=== PATIENT | female | born 1945 | race Caucasian/White ===

== ENCOUNTER 2017-06-07 15:51 | Inpatient (IN) | payer MEDICARE, MEDICAID ==
[~2017-06-07] VITALS: Ht 157.5 cm; Wt 44.5 kg
--- NOTE | 2017-06-07 16:45 | NUR ---
ADMITTED TO ARU UNIT, PER [facility] ACCOMPANIED BY MEDRESPONSE. ALERT AND ORIENTED X3. NO COMPALINST OF DISCOMFRT. ROUTINE ADMISSION CARE DONE. ORIENTED TO EQUIPMENT AND UNIT. SEEN AND EXAMINED BY DR. NELSON. PATIENT ANXIOUS.
[2017-06-07 17:00] VITALS: BP 105/66
[2017-06-07] MEDS ORDERED: BUPR-88 PO (18:19)
[2017-06-07] MEDS ORDERED: BUSP5TAB3 PO (18:19)
[2017-06-07] MEDS ORDERED: ALBU2.5V38 IH (18:19)
[2017-06-07] MEDS ORDERED: NORT25CA PO (18:19)
[2017-06-07] MEDS ORDERED: BUDE0.252 IH (18:19)
[2017-06-07] MEDS ORDERED: ZOLP5TAB8 PO (18:19)
[2017-06-07] MEDS ORDERED: BUDE10.2 INH (18:19)
[2017-06-07] MEDS ORDERED: LEVO750T46 PO (18:19)
[2017-06-07] MEDS ORDERED: DOXE10CA2 PO (18:19)
[2017-06-07] MEDS ORDERED: GABA600T2 PO (18:19)
[2017-06-07] MEDS ORDERED: HYDR-548 PO (18:19)
[2017-06-07] MEDS ORDERED: ERGO500014 PO (18:19)
[2017-06-07] MEDS ORDERED: CARB-93 PO (18:19)
[2017-06-07] MEDS ORDERED: FURO20TA4 PO (18:19)
[2017-06-07] MEDS ORDERED: SUCR1TAB PO (18:19)
[2017-06-07] MEDS ORDERED: TRIA80OI TP (18:19)
[2017-06-07] MEDS ORDERED: OMEP20TA5 PO (18:19)
[2017-06-07] MEDS ORDERED: ATOR20TA PO (18:19)
[2017-06-07] MEDS ORDERED: RIVA1.5C7 PO (18:19)
[2017-06-07] MEDS ORDERED: ASPI81TA31 PO (18:19)
[2017-06-07] MEDS ORDERED: POTA10TA15 PO (18:19)
--- NOTE | 2017-06-07 19:45 | NUR ---
RECEIVED PATIENT AWAKE IN BED. A/O X3. PATIENT IS VERY UPSET AND VERY ANXIOUS. PATIENT IS UPSET THAT SHE DOESN'T HAVE ANY ADHESIVE FOR HER DENTURES. VSS. HR SLIGHTLY ELEVATED DUE TO PATIENTS ANXIETY. PATIENT DENIES PAIN OR DISCOMFORT. NO RESP. DISTRESS NOTED. BED ALARM ON. CALL LIGHT IN REACH. ALL NEEDS ATTENDED. WILL CONTINUE TO MONITOR AND ASSESS.
--- NOTE | 2017-06-07 20:00 | NUR ---
PATIENT PROVIDED WITH DENTURE ADHESIVE CREAM. PATIENT IS VERY THANKFUL AND RELIEVED. PROVIDED SAFE AND THERAPEUTIC ENVIRONMENT. WILL CONTINUE TO REASSESS AND MONITOR VITALS. CALL LIGHT IN REACH. ALL NEEDS ATTENDED, WILL CONTINUE TO MONITOR AND ASSESS.
[2017-06-07 20:28] VITALS: BP 102/70
--- NOTE | 2017-06-07 20:30 | NUR ---
RECHECKED PATIENT HEART RATE-WNL. PATIENT STATED, "I FEEL BETTER NOW, THANK YOU SO MUCH." WILL CONTINUE TO MONITOR AND ASSESS.
--- NOTE | 2017-06-08 06:43 | NUR ---
PATIENT AWAKE IN BED. SLEPT WELL THROUGHOUT THE NIGHT. SACRAL AND BUTTOCKS VERY RED AND EXCORIATED. Z-GUARD APPLIED. REPOSITIONED TO SIDE FOR COMFORT AND PRESSURE RELIEF. PICTURE TAKEN AND PLACED IN CHART. CALL LIGHT IN REACH. BED ALARM ON. ALL NEEDS ATTENDED. WILL CONTINUE TO MONITOR.
[2017-06-08 07:21] LABS: BASOPHILS % (AUTO) 0.4 % (0.0-2.0); EOSINOPHILS # (AUTO) 0.1 K/uL (0.0-0.7); EOSINOPHILS % (AUTO) 0.5 % (0.0-7.0); HEMATOCRIT 33.9 % (37-47); HEMOGLOBIN 10.6 G/DL (12.0-16.0); LYMPHOCYTES # (AUTO) 1.9 K/UL (0.8-4.8); LYMPHOCYTES % (AUTO) 17.1 % (20.5-51.5); MEAN CORPUSCULAR HEMOGLOBIN 27.4 UUG (27.0-31.0); MEAN CORPUSCULAR HGB CONC 31 g/dL (32.0-37.0); MEAN CORPUSCULAR VOLUME 87.6 FL (81.0-99.0); MONOCYTES # (AUTO) 0.7 K/UL (0.1-1.30); MONOCYTES % (AUTO) 6.6 % (0.0-11.0); NEUTROPHILS # (AUTO) 8.5 K/UL (1.8-8.9); NEUTROPHILS % (AUTO) 75.4 % (38.5-71.5); PLATELET COUNT (AUTO) 262 K/UL (150-450); RED BLOOD CELL COUNT(AUTO) 3.87 MIL/UL (4.2-5.4); WHITE BLOOD COUNT (AUTO) 11.2 K/UL (4.0-11.2)
--- NOTE | 2017-06-08 07:30 | NUR ---
RECEIVED PATIENT ASLEEP. NON-LABORED BREATHING. CALL LIGHT WITHIN REACH
[2017-06-08 07:35] LABS: CARBON DIOXIDE 32 mmol/L (21-32); CHLORIDE 101 mmol/L (98-107); CHOLESTEROL 133 mg/dL (<200); CREATININE 0.5 mg/dL (0.6-1.3); GLUCOSE 101 mg/dL (74-106); HDL CHOLESTEROL 46 mg/dL (40-60); MAGNESIUM 1.5 mg/dL (1.8-2.4); PHOSPHOROUS 3.2 mg/dL (2.5-4.9); POTASSIUM 3.2 mmol/L (3.5-5.1); TRIGLYCERIDES 118 MG/DL (30-150); UREA NITROGEN, BLOOD 8 mg/dL (7-18)
[2017-06-08 07:58] LABS: BAND % (MANUAL) 3 % (0-10); LYMPHOCYTES % (MANUAL) 19 % (20-40); MONOCYTES % (MANUAL) 7 % (2-10); NEUTROPHILS % (MANUAL) 71 % (42-75)
[2017-06-08 08:00] VITALS: BP 99/74
--- NOTE | 2017-06-08 10:30 | NUR ---
REFUSED TO PARTICIPATE WITH THERAPY AT THE MOMENT. ALERT, AWAKE AND ORIENTED X3. WITHDRAWN. ENCOURAGED SMALL FREQUENT MEALS. PATIENT WAS ABLE TO EAT ONLY 10 % DURING BREAKFAST
--- NOTE | 2017-06-08 12:00 | NUR ---
UP WITH OCCUPATIONAL THERAPY. REQUESTED FOR PAIN MEDICATIONS RATED PAIN 7/10 OVER BACK. PRN PAIN MEDICATION GIVEN
--- NOTE | 2017-06-08 17:20 | NUR ---
Patient still withdrawn and refused to eat dinner. Informed Dr. Walter, Psyche consult ordered and Rameron 15 mg Po HS.
[2017-06-08 20:37] VITALS: BP 105/61
--- NOTE | 2017-06-08 22:00 | NUR ---
Was upset that we disturbed her, to turn her. Then quickly went back to sleep
--- NOTE | 2017-06-09 05:45 | NUR ---
a/a but confused.TURNED EVERY 2 HRS
--- NOTE | 2017-06-09 05:45 | NUR ---
Slept most of the night
[2017-06-09 07:43] VITALS: BP 130/76
--- NOTE | 2017-06-09 14:20 | NUR ---
DAILY NOTES PT IS REFUSING MOST OF MEDS AND MEALS. MEDS SCANNED THIS AM BUT SHE IS REFUSING TO TAKE THEM. ENCOURAGE HER TO INCREASE HER PO INTAKE. SHE IS ALSO REFUSING TO EAT BKFST AND LUNCH WELL NOTIFIED. ORDERED D51/2 @ 80ML/HR X 3 LITERS. AND CONTINUE TO ENCOURAGE PO INTAKE
--- NOTE | 2017-06-09 14:24 | NUR ---
WOUND CARE CONSULT: PT PRESENTS WITH INCONTINENCE. BHARATH SCORE IS CURRENTLY 15. BLANCHABLE REDNESS NOTED TO SACRAL AREA WITH SCAR. RECOMMENDATIONS MADE FOR SKIN PROTECTION AND DISCUSSED WITH NURSING STAFF. ALL SKIN PROTECTION MEASURES IN PLACE. WILL SEE PRN. JONES IN AGREEMENT WITH PLAN OF CARE. Addendum: 06/09/17 at 1426 by ANEESH AGUSTIN RN Amended: Links added.
[2017-06-09 20:43] VITALS: BP 117/65
--- NOTE | 2017-06-09 21:30 | NUR ---
PT'S A/A/O X2 ON BED REST COMFORTABLY,PT'S ON IVF ORDER DUE TO PT HAD POOR INTAKE(PER AM SHIFT'S REPORT);ASSISTED PT TO REPOSITION AND GAVE SOME APPLE SAUCE AT THIS TIME;PT'S COOPERATIVE W/ASSISTANCE AND ABLE TO GET 3/4 CUP OF APPLE SAUCE;TOLERATED WELL NOTED.FALL PRECAUTION REINFORCED.BED ALARM'S ON.MAINTAINED IVF ORDER.
--- NOTE | 2017-06-10 06:30 | NUR ---
ASSISTED PT FOR AM,SKIN CARE ON BED;REPOSITION AND KEPT COMFORT.NO DSITRESS NOTED IN THE SHIFT,PT TOLERATED WELL WITH TX AND ASSISTANCE.STILL ON IVF ORDER.
--- NOTE | 2017-06-10 07:40 | NUR ---
PT AWAKE IN BED, NO DISTRESS NOTED. WHEN ASKED IF THERE WAS ANYTHING I DO FOR FOR THE PT, PT STATED "NO I AM LEAVING" ALL SAFETY AND COMFORT MEASURES ATTENDED TO, CALL LIGHT IN REACH WILL CONTINUE TO MONITOR
[2017-06-10 08:43] VITALS: BP 128/72
--- NOTE | 2017-06-10 08:53 | NUR ---
PT TOOK ALL MORNING MEDICATIONS BUT DOES NOT WANT TO EAT BREAKFAST AT THIS TIME
--- NOTE | 2017-06-10 18:46 | NUR ---
PT INTAKE UP TO 25% FOR DINNER. 3RD BAG OF D5 1/2 NS INFUSING AT THIS TIME. NO CHANGES THROUGHOUT SHIFT
--- NOTE | 2017-06-10 19:35 | NUR ---
PT RECEIVED IN BED, AWAKE. A/OX4. ABLE TO MAKE NEEDS KNOWN. V/S STABLE. IN NO ACUTE DISTRESS. NO C/O PAIN AT THIS TIME. IVF INFUSING. SAFETY MEASURES IMPLEMENTED. BED ALARM SET. CALL LIGHT WITHIN REACH.
[2017-06-10 20:05] VITALS: BP 98/48
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
[2017-06-11 07:05] VITALS: BP 139/79
--- NOTE | 2017-06-11 20:00 | NUR ---
RECEIVED PT. VERBALLY RESPONSIVE & FOLLOWS TO COMMAND W/ PERIODS OF CONFUSION. HEP LOCK INTACT & PATENT ON RFA. HS CARE DONE & REPOSITIONED ON HER W/ HOB ELEVATED. NOT IN ANY DISTRESS.
[2017-06-11 22:03] VITALS: BP 98/47
--- NOTE | 2017-06-12 06:00 | NUR ---
AM CARE DONE. REPOSITIONED W/ HOB ELEVATED. PT. SEEMS MORE CONFUSED LAST NIGHT, O2 SAT 97% ON RM AIR, BP STABLE.
[2017-06-12 06:53] LABS: CARBON DIOXIDE 32 mmol/L (21-32); CHLORIDE 102 mmol/L (98-107); CREATININE 0.9 mg/dL (0.6-1.3); GLUCOSE 92 mg/dL (74-106); UREA NITROGEN, BLOOD 7 mg/dL (7-18)
[2017-06-12 07:07] LABS: POTASSIUM 2.8 mmol/L (3.5-5.1)
[2017-06-12 07:53] LABS: BASOPHILS # (AUTO) 0.1 K/uL (0.0-8.0); BASOPHILS % (AUTO) 0.5 % (0.0-2.0); EOSINOPHILS % (AUTO) 0.2 % (0.0-7.0); HEMATOCRIT 32.7 % (37-47); HEMOGLOBIN 10.2 G/DL (12.0-16.0); LYMPHOCYTES # (AUTO) 3.1 K/UL (0.8-4.8); LYMPHOCYTES % (AUTO) 24.6 % (20.5-51.5); MEAN CORPUSCULAR HEMOGLOBIN 28.1 UUG (27.0-31.0); MEAN CORPUSCULAR HGB CONC 31 g/dL (32.0-37.0); MEAN CORPUSCULAR VOLUME 90.1 FL (81.0-99.0); MONOCYTES # (AUTO) 0.9 K/UL (0.1-1.30); MONOCYTES % (AUTO) 7.3 % (0.0-11.0); NEUTROPHILS # (AUTO) 8.5 K/UL (1.8-8.9); NEUTROPHILS % (AUTO) 67.4 % (38.5-71.5); PLATELET COUNT (AUTO) 257 K/UL (150-450); RED BLOOD CELL COUNT(AUTO) 3.63 MIL/UL (4.2-5.4); WHITE BLOOD COUNT (AUTO) 12.6 K/UL (4.0-11.2)
[2017-06-12 08:00] VITALS: BP 131/62
--- NOTE | 2017-06-12 20:00 | NUR ---
A/a but confused shaky shouting out, no acute distress noted, medicated for pain and agitation.
[2017-06-12 21:14] VITALS: BP 120/46
--- NOTE | 2017-06-13 01:38 | NUR ---
Informed , of patients agitation, orders obtained
--- NOTE | 2017-06-13 01:40 | NUR ---
Late entry, informed OF PATIENT CONDITION, PATIENT DIAPHORETIC,SHAKY,SHOUTING,AFTER.MULTIPLE MEDS GIVEN. hASN'T VOIDED SINCE 1899. mOUTH PARCHED. patient in some distress. ORDERS OBTAINED
--- NOTE | 2017-06-13 02:53 | NUR ---
Bladder scanner used, noted > 331 cc urine, will recheck.Abdomen remains non distended
--- NOTE | 2017-06-13 04:17 | NUR ---
Abdomen slightly distended, used bladder scanner noted 153 cc
--- NOTE | 2017-06-13 05:00 | NUR ---
Slept well after ativan iv given Easily awakens but goes back to sleep. NO URine output this shift,TURNED every 2 hrs.
--- NOTE | 2017-06-13 06:56 | NUR ---
straight cath for ua, 200 cc out. resting comfortably.
[2017-06-13 07:23] LABS: BASOPHILS % (AUTO) 0.6 % (0.0-2.0); EOSINOPHILS % (AUTO) 0.5 % (0.0-7.0); HEMATOCRIT 28.3 % (37-47); HEMOGLOBIN 9.1 G/DL (12.0-16.0); LYMPHOCYTES # (AUTO) 2.5 K/UL (0.8-4.8); LYMPHOCYTES % (AUTO) 34.2 % (20.5-51.5); MEAN CORPUSCULAR HEMOGLOBIN 28.8 UUG (27.0-31.0); MEAN CORPUSCULAR HGB CONC 32 g/dL (32.0-37.0); MEAN CORPUSCULAR VOLUME 89.4 FL (81.0-99.0); MONOCYTES # (AUTO) 0.7 K/UL (0.1-1.30); MONOCYTES % (AUTO) 10.3 % (0.0-11.0); NEUTROPHILS # (AUTO) 4.1 K/UL (1.8-8.9); NEUTROPHILS % (AUTO) 54.4 % (38.5-71.5); PLATELET COUNT (AUTO) 208 K/UL (150-450); RED BLOOD CELL COUNT(AUTO) 3.16 MIL/UL (4.2-5.4); WHITE BLOOD COUNT (AUTO) 7.3 K/UL (4.0-11.2)
[2017-06-13 07:34] VITALS: BP 121/59
[2017-06-13 07:42] LABS: ALKALINE PHOSPHATASE 73 U/L (50-136); ASPARTATE AMINOTRANSFERASE 18 U/L (15-37); BILIRUBIN,TOTAL 0.2 mg/dL (0.2-1.0); CARBON DIOXIDE 31 mmol/L (21-32); CHLORIDE 108 mmol/L (98-107); CREATININE 0.7 mg/dL (0.6-1.3); GLUCOSE 85 mg/dL (74-106); MAGNESIUM 1.5 mg/dL (1.8-2.4); PHOSPHOROUS 2.7 mg/dL (2.5-4.9); POTASSIUM 3.3 mmol/L (3.5-5.1); TOTAL PROTEIN, SERUM 5.7 g/dL (6.4-8.2); UREA NITROGEN, BLOOD 9 mg/dL (7-18)
[2017-06-13 07:51] LABS: ALANINE AMINOTRANSFERASE 6 U/L (14-59)
[2017-06-13 07:56] LABS: *BLOOD, URINE NEGATIVE (NEGATIVE); *COLOR,URINE AMBER (YELLOW); *KETONES,URINE TRACE (NEGATIVE); *PROTEIN,URINE 1+ (NEGATIVE); *UROBILINOGEN,URINE 0.2 E.U./dl (NORMAL); LEUKOCYTE ESTERASE ,URINE NEGATIVE (NEGATIVE); NITRITE, URINE NEGATIVE (NEGATIVE); UGLUCOSE NEGATIVE (NEGATIVE)
[2017-06-13 08:06] LABS: *BILIRUBIN,URIN NEGATIVE (NEGATIVE); *CLARITY,URINE HAZY (CLEAR)
[2017-06-13 08:08] LABS: BACTERIA,URINE FEW /HPF (NONE SEEN); SQUAMOUS EPITHELIAL CELL,UR MANY /HPF (NONE SEEN); YEAST,URINE FEW /HPF (NONE SEEN)
[2017-06-13 09:00] VITALS: BP 121/59
[2017-06-13 20:17] VITALS: BP 122/70
--- NOTE | 2017-06-13 20:56 | NUR ---
Received orders from Dr. Cupl for IV NS @ 75ml/hr continuously for poor PO intake. Per MD, he will reevaluate patient tomorrow. All needs attended to promptly. Call light within reach. Will continue to monitor.
[2017-06-13 21:00] VITALS: BP 122/70
--- NOTE | 2017-06-13 21:10 | NUR ---
No significant change, tolerated routine meds. Patient remains dry, no urine output yet. IVF NS at 75ml/hr started as ordered.
--- NOTE | 2017-06-14 06:00 | NUR ---
Incontinent, patient voided 2x throughout shift. Incontinence care provided. Vital signs are WNL.
--- NOTE | 2017-06-14 09:00 | NUR ---
During morning administration of medications pt refused ordered aspirin. Held per pt request.
--- NOTE | 2017-06-14 10:00 | NUR ---
PT SEEN TO HAVE LESS TREMORS DURING ASSESSMENT. PT SEEN TO HAVE REDNESS ON PERINEAL AREA. PICTURES TAKEN AND PLACED IN CHART. CHECKED IV SITE INTACT AND PATENT. PT COMPLAINED OF PAIN ON ABDOMINAL AREA. PT GIVEN NORCO FOR PAIN. PT SEEN BY DR WESTFALL AND ADJUSTED MIRTAZAPINE DOSAGE. NO SIGNS OF DISTRESS. WILL CONTINUE TO MONITOR.
[2017-06-14 11:28] VITALS: BP 119/60
--- NOTE | 2017-06-14 14:20 | NUR ---
Rehab Team Conference 06/14/17
--- NOTE | 2017-06-14 15:56 | NUR ---
pt seen to have increased tremors on attempt to move. md notified. md has no new orders for tremors. md also recommended to have megace 40 mg to increase appetite.
--- NOTE | 2017-06-14 18:57 | NUR ---
pt seen by md asher. notifed md about tremors on attempt to move. pt had no new orders. assisted pt in eating meals. pt continues to refuse to eat. pt given megace to increase appetite. pt assisted to needs. pt continues to be confused at times. pt on ns running at 75mls per hour. pt participated in therapy and took meds as prescribed. will endorse new orders to shift production associate nurse.
[2017-06-14 20:00] VITALS: BP 127/78
--- NOTE | 2017-06-14 20:00 | NUR ---
RECEIVED PT DROWSY BUT AROUSABLE, ALERT & FOLLOWS TO COMMAND. IVF NS @ 75CC/HR ON FRA NO SIGNS OF INFILTRATION. REPOSITIONED ON HER SIDE AFTER CHECKED FOR INCONT. URINE /STOOL W/ HOB ELEVATED. DENIES PAIN THIS TIME. NOT IN ANY DISTRESS.
[2017-06-14 21:00] VITALS: BP 127/78
--- NOTE | 2017-06-14 22:00 | NUR ---
HS CARE DONE. REPOSITIONED W/ HOB ELEVATED.
--- NOTE | 2017-06-15 01:00 | NUR ---
PT IS QUITE TONIGHT. NOT IN ANY DISTRESS.
--- NOTE | 2017-06-15 05:19 | NUR ---
AM CARE DONE. KEPT PT DRY & CLEAN. TURNED TO SIDE W/ HOB ELEVATED.
--- NOTE | 2017-06-15 05:24 | NUR ---
SLEPT WELL ALL NIGHT.
[2017-06-15 08:00] VITALS: BP 128/49
[2017-06-15 08:02] VITALS: BP 128/49
--- NOTE | 2017-06-15 08:30 | NUR ---
Pt easily awoken for morning assessment and medications. Pt states "feeling ill" last night and continuing through this morning. Requesting today's goal to be "to rest and eat more". Complied with receiving morning medications as prescribed. All safety and comfort measures met at this time, call light within reach. Will continue to monitor.
[2017-06-15 09:10] VITALS: BP 128/49
--- NOTE | 2017-06-15 15:49 | NUR ---
ordered colace 250mg daily for constipation.
--- NOTE | 2017-06-15 18:17 | NUR ---
PT has had no significant changes during this shift. Compliant with routine medication administrations. No PT/OT therapies today. Continuous NS at 75ml/hr maintained as ordered. New order for Colace 250 mg daily placed per MD request, and administered as ordered. Tx proved to be effective AEB 1 bowel movement during this shift. Megace medication also effective R/T increase in appetite AEB 25% lunch consumption. All comfort and safety measures met. Will continue to monitor and endorse new orders to night shift supervisor.
[2017-06-15 20:19] VITALS: BP 105/52
[2017-06-15 21:00] VITALS: BP 105/52
--- NOTE | 2017-06-16 06:55 | NUR ---
END OF SHIFT NOTES. PT SLEPT WELL THROUGHOUT SHIFT. IN STABLE CONDITION. IVF INFUSING. IV INTACT AND PATENT. ALL NEEDS ATTENDED. SAFETY MAINTAINED. CALL LIGHT WITHIN REACH.
[2017-06-16 09:03] VITALS: BP 128/49
[2017-06-16 10:29] VITALS: BP 136/67
--- NOTE | 2017-06-16 14:11 | NUR ---
pt visited by neurologist dr osei. states that pt does not have parkinson. md states that patient has episodic tremors. md doesnt want to adjust carbidopa levodopa dosage and wants to remind other md in her care to not diagnose pt with parkinson. will follow up with md report.
--- NOTE | 2017-06-16 14:35 | NUR ---
[facility] Lab Technician Bio: SW met with pt at [facility] to assess for needs and provide support. Pt is a 72-year-old female who was transferred from [place] after being treated for pneumonia. Pt has a positive history of CVA and Parkinson's disease. Pt was admitted to ARU due to functional decline. Psych: Pt appeared alert, however SW was unable to assess for orientation. Pt refused to answer questions regarding, person, location, date, or situation. Pt was guarded and uncooperative. Pt has been in the hospital since June 07, 2017. Per chart, pt has a history of anxiety and depression. Social: Per chart, pt [facility]. Pt stated that she feels supported by her exqruy-jc-sot and other family members. Pt reported that her [id number]-wew visited her in ARU earlier in the day. Goals: Pt reports that her goal is to "get stronger and get out." SS: SW engaged in active listening. SW provided emotional support and counseling. Per RN, pt's family requested forms for DPOA. SW provided forms DPOA forms. SW will continue to provide emotional support and encourage pt to comply with rehab goals.
--- NOTE | 2017-06-16 18:57 | NUR ---
Pt. has remained in stable condition for the duration of this shift. All comfort and safety measures in place. Call light within reach. Brother visiting at bedside.
--- NOTE | 2017-06-16 20:00 | NUR ---
RECEIVED PT. DROWSY BUT AROUSABLE & FOLLOWS TO COMMAND. IVF NS @ 75CC/HR ON RFA, NO SIGNS OF INFILTRATION. INCONT. OF URINE CLEANED & REPOSITIONED W/ HOB ELEVATED. DENIES PAIN. NOT IN ANY DISTRESS.
[2017-06-16 20:12] VITALS: BP 115/56
[2017-06-16 21:00] VITALS: BP 115/56
--- NOTE | 2017-06-16 22:00 | NUR ---
HS CARE DONE. REPOSITIONED ON HER SIDE W/ HOB ELEVATED.
--- NOTE | 2017-06-17 06:10 | NUR ---
AM CARE DONE. REPOSITIONED ON HER SIDE W/ HOB ELEVATED AFTER CLEANED & Z-GUARD CREAM APPLIED TO PERIANAL AREA. DENIES PAIN. NOT IN ANY DISTRESS. IVF INFUSING WELL.
[2017-06-17 08:00] VITALS: BP 134/62
--- NOTE | 2017-06-17 08:00 | NUR ---
Received patient awake, alert x2. With ongoing IVF of NS at 75cc/hr infusing well, patent and intact with G22 needle. Call light within reach. No complaints of pain/discomfort at this time.
[2017-06-17 09:00] VITALS: BP 134/62
--- NOTE | 2017-06-17 09:30 | NUR ---
Was able to eat 50% of breakfast with minimum assist. Tremors decreased from previous days. More awake and conversant today. IVF infusing well.
--- NOTE | 2017-06-17 18:05 | NUR ---
Caitlyn-care done. Non-distended bladder. IVF changed, new bag infusing well. With good appetite today.
[2017-06-17 20:35] VITALS: BP 131/63
[2017-06-17 21:00] VITALS: BP 131/68
--- NOTE | 2017-06-18 05:38 | NUR ---
AAOX4 ALVARADO'S FALL PRECAUTIONS MAINTAINED. BED ALARM ON. NEEDS ATTENDED. IVF'S INFUSING WELL VIA RIGHT ARM HEPLOCK. TOLERATED WELL. NO ACUTE DISTRESS NOTED. INCONTINENT OF BOWEL AND BLADDER. KEPT CLEAN AND DRY. BM NOTED THIS SHIFT. LAB WORKS THIS AM.
[2017-06-18 08:20] VITALS: BP 147/70
[2017-06-18 08:28] LABS: ALANINE AMINOTRANSFERASE 9 U/L (14-59); ALKALINE PHOSPHATASE 75 U/L (50-136); ASPARTATE AMINOTRANSFERASE 13 U/L (15-37); BILIRUBIN,TOTAL 0.3 mg/dL (0.2-1.0); CARBON DIOXIDE 31 mmol/L (21-32); CREATININE 0.5 mg/dL (0.6-1.3); GLUCOSE 88 mg/dL (74-106); TOTAL PROTEIN, SERUM 5.6 g/dL (6.4-8.2); UREA NITROGEN, BLOOD 3 mg/dL (7-18)
[2017-06-18 08:37] LABS: CHLORIDE 106 mmol/L (98-107); MAGNESIUM 1.3 mg/dL (1.8-2.4)
[2017-06-18 09:00] VITALS: BP 147/70
[2017-06-18 09:01] LABS: POTASSIUM 2.4 mmol/L (3.5-5.1)
--- NOTE | 2017-06-18 09:30 | NUR ---
pt in bed repositioned for comfort, no distress.
--- NOTE | 2017-06-18 13:32 | NUR ---
Dr Culp aware of K+ 2.4 x2 dosages of K+ 40 meq given also will be let him know MG 1.3, pt currently is on NS at 100ml/h, was seen by PT and was able to walk, recomendations are assist for transfer and pt will need a higher level of care, will f/u.
--- NOTE | 2017-06-18 18:08 | NUR ---
Pt in bed reposition for comfort, there are labs to schedule for tomorrow will f/u in am for labs value, continue ivf, no distress.
--- NOTE | 2017-06-18 19:30 | NUR ---
iv noted red and swollen, site changed and new iv inserted. asleep but easily arouse, no complain.
[2017-06-18 20:51] VITALS: BP 122/66
[2017-06-18 21:00] VITALS: BP 122/66
--- NOTE | 2017-06-19 06:30 | NUR ---
slept well overnight,vss,afebrile, denies any pain, completed 2gm mag ivpb last night infusing well to new iv site. had bm, incontinent of bladder and bowel.kept comfortable.
--- NOTE | 2017-06-19 08:00 | NUR ---
Pt. alert, awake, and oriented upon morning assessment. V/s stable and WNL. No pain or acute distress noted at this time. All comfort and safety measures implemented. Call light placed within reach. Will continue to monitor.
[2017-06-19 08:42] VITALS: BP 145/75
[2017-06-19 15:13] LABS: CARBON DIOXIDE 28 mmol/L (21-32); CHLORIDE 106 mmol/L (98-107); CREATININE 0.3 mg/dL (0.6-1.3); GLUCOSE 90 mg/dL (74-106); POTASSIUM 3.3 mmol/L (3.5-5.1); UREA NITROGEN, BLOOD 7 mg/dL (7-18)
--- NOTE | 2017-06-19 18:51 | NUR ---
Pt. asymptomatic during shift. Pt labs drawn in order to reevaluate potassium levels from critical value of 2.4. notified. Recent potassium lab values found to be 3.3 at 15:59 today. V/S stable. Complied with all medication administration as ordered. Will continue to monitor and endorse current status to ball machine operator. Pt. continues to have fear of falling. Call light within reach.
[2017-06-19 20:54] VITALS: BP 129/70
[2017-06-19 21:00] VITALS: BP 129/70
--- NOTE | 2017-06-20 06:00 | NUR ---
pt had x2 bm, very excoriated perineal, hydrogel ,zguard and mepilex applied, continue with iv fluids, repositioned for comfort,slept well. denies any pain. all needs attended.
[2017-06-20 08:00] VITALS: BP 148/75
--- NOTE | 2017-06-20 11:08 | NUR ---
D/C NOTE ARRANGEMENT MADE FOR HER TO D/C TO [facility] BY CASE MANAGEMENT. TO [facility] IN [facility]. PAINT ROLLER ASSEMBLER TIME SCHEDULED FOR 1300 D/C ORDER IN THE COMPUTER. D/C PICS TAKEN OF EXCORIATED BUTTOCKS AND PERINEUM AND PLACED ON THE CHART. Addendum: 06/20/17 at 1114 by Anisha Mayorga RN FAMILY AND PT AWARE OF D/C AND TRANSFER TO [facility]
[2017-06-20 11:47] VITALS: BP 132/77
--- NOTE | 2017-06-20 11:54 | NUR ---
D/C NOTE REPORT GIVEN TO ESA LANDIS AT [facility]
[2017-06-26] MEDS ORDERED: ACET-2154 PO (12:52)
[2017-06-26] MEDS ORDERED: DOCU-141 GT (12:52)
[2017-06-26] MEDS ORDERED: CLON0.5T4 PO (12:52)
[2017-06-26] MEDS ORDERED: CEFT1VIA15 IV (12:52)
[2017-06-26] MEDS ORDERED: ACID1TAB4 GT (12:52)
[2017-06-26] MEDS ORDERED: RIVA1.5C7 GT (12:52)
[2017-06-26] MEDS ORDERED: GABA-534 GT (12:52)
[2017-06-26] MEDS ORDERED: CARB1TAB21 GT (12:52)
[2017-06-26] MEDS ORDERED: MULT1TAB73 GT (12:52)
[2017-06-26] MEDS ORDERED: METO25TA6 GT (12:52)
[2017-06-26] MEDS ORDERED: CLOT15CR36 TOP (12:52)
[2017-06-26] MEDS ORDERED: BUPR150T10 GT (12:52)
[2017-06-26] MEDS ORDERED: FLUC100T GT (12:52)
[2017-06-26] MEDS ORDERED: Magnesium Oxide GT (12:52)
[2017-06-26] MEDS ORDERED: MIRT15TA7 GT (12:52)
[2017-06-26] MEDS ORDERED: ASPI81TA31 GT (12:52)
[2017-06-26] MEDS ORDERED: NUTR250L61 GT (12:52)
[2017-06-26] MEDS ORDERED: ALBU2.5V13 NEB (12:52)
[2017-06-26] MEDS ORDERED: FAMO20TA8 GT (12:52)
[2017-06-26] MEDS ORDERED: HYDR-3326 GT (12:52)
[2017-06-26] MEDS ORDERED: ATOR10TA GT (12:52)
[2017-06-26] MEDS ORDERED: MENT71OI TOP (12:52)
== END 2017-06-20 13:30 | DRG 871 ==
PROVIDERS: ADMIT Physical Medicine & Rehabilitation Pain Medicine; ATTEND Physical Medicine & Rehabilitation Pain Medicine
DX: A41.9 Sepsis, unspecified organism (principal); J18.9 Pneumonia, unspecified organism; J96.90 Respiratory failure, unspecified, unspecified whether with hypoxia or hypercapnia; G92 Toxic encephalopathy; E44.0 Moderate protein-calorie malnutrition; F03.90 Unspecified dementia, unspecified severity, without behavioral disturbance, psychotic disturbance, mood disturbance, and anxiety; N39.0 Urinary tract infection, site not specified; R63.0 Anorexia; J44.0 Chronic obstructive pulmonary disease with (acute) lower respiratory infection; Z68.1 Body mass index [BMI] 19.9 or less, adult; B96.20 Unspecified Escherichia coli [E. coli] as the cause of diseases classified elsewhere; E78.5 Hyperlipidemia, unspecified; F32.9 Major depressive disorder, single episode, unspecified; I10 Essential (primary) hypertension; K58.9 Irritable bowel syndrome, unspecified; Z86.73 Personal history of transient ischemic attack (TIA), and cerebral infarction without residual deficits; I25.10 Atherosclerotic heart disease of native coronary artery without angina pectoris; R53.81 Other malaise; R45.4 Irritability and anger; E83.42 Hypomagnesemia; E87.6 Hypokalemia; F41.1 Generalized anxiety disorder; R62.7 Adult failure to thrive; Y95 Nosocomial condition; Z79.899 Other long term (current) drug therapy; F09 Unspecified mental disorder due to known physiological condition; R41.0 Disorientation, unspecified; R25.1 Tremor, unspecified
CPT/HCPCS: 36415; 70030-TC; 83735; 84100; 85025; 87086; 92523; 94664; 97110; 97112; 97116; 97165; 97530; 97535; A4663; C1758; J2060; J3475; J3480; J3490; J3590; J7030; J7050

== ENCOUNTER 2017-06-22 19:47 | Inpatient (IN) | payer MEDICARE, MEDICAID ==
[~2017-06-22] VITALS: Ht 167.6 cm; Wt 49.0 kg
[~2017-06-22 19:47] MED LIST: ALBU2.5V38 IH; ASPI81TA31 PO; ATOR20TA PO; BUDE0.252 IH; BUDE10.2 INH; BUPR-88 PO; BUSP5TAB3 PO; CARB-93 PO; DOXE10CA2 PO; ERGO500014 PO; FURO20TA4 PO; GABA600T2 PO; HYDR-548 PO; LEVO750T46 PO; NORT25CA PO; OMEP20TA5 PO; POTA10TA15 PO; RIVA1.5C7 PO; SUCR1TAB PO; TRIA80OI TP; ZOLP5TAB8 PO
[2017-06-22] MEDS ORDERED: HYDR-3326 PO (20:16)
[2017-06-22] MEDS ORDERED: FLUT1BLS IH (20:16)
[2017-06-22] MEDS ORDERED: PANT40TA2 PO (20:16)
[2017-06-22] MEDS ORDERED: MEGE40TA PO (20:16)
[2017-06-22] MEDS ORDERED: DOCU250C14 PO (20:16)
[2017-06-22] MEDS ORDERED: MIRT7.5T10 PO (20:16)
[2017-06-22] MEDS ORDERED: LORA0.5T PO (20:16)
[2017-06-22 20:37] LABS: BASOPHILS # (AUTO) 0.1 K/uL (0.0-8.0); BASOPHILS % (AUTO) 0.6 % (0.0-2.0); EOSINOPHILS # (AUTO) 0.1 K/uL (0.0-0.7); EOSINOPHILS % (AUTO) 1.1 % (0.0-7.0); HEMATOCRIT 34.2 % (37-47); HEMOGLOBIN 10.9 G/DL (12.0-16.0); LYMPHOCYTES # (AUTO) 2.5 K/UL (0.8-4.8); MEAN CORPUSCULAR HEMOGLOBIN 28.1 UUG (27.0-31.0); MEAN CORPUSCULAR HGB CONC 32 g/dL (32.0-37.0); MEAN CORPUSCULAR VOLUME 88.1 FL (81.0-99.0); MONOCYTES # (AUTO) 0.7 K/UL (0.1-1.30); MONOCYTES % (AUTO) 6.6 % (0.0-11.0); NEUTROPHILS # (AUTO) 6.9 K/UL (1.8-8.9); NEUTROPHILS % (AUTO) 67.7 % (38.5-71.5); PLATELET COUNT (AUTO) 224 K/UL (150-450); RED BLOOD CELL COUNT(AUTO) 3.88 MIL/UL (4.2-5.4); WHITE BLOOD COUNT (AUTO) 10.3 K/UL (4.0-11.2)
[2017-06-22 20:55] LABS: ALANINE AMINOTRANSFERASE 8 U/L (14-59); ALKALINE PHOSPHATASE 73 U/L (50-136); ASPARTATE AMINOTRANSFERASE 11 U/L (15-37); BILIRUBIN,DIRECT 0.1 mg/dL (0.0-0.2); BILIRUBIN,TOTAL 0.3 mg/dL (0.2-1.0); CARBON DIOXIDE 30 mmol/L (21-32); CHLORIDE 102 mmol/L (98-107); CREATININE 0.5 mg/dL (0.6-1.3); GLUCOSE 92 mg/dL (74-106); TOTAL PROTEIN, SERUM 5.9 g/dL (6.4-8.2); UREA NITROGEN, BLOOD 15 mg/dL (7-18)
[2017-06-22 21:00] LABS: POTASSIUM 2.7 mmol/L (3.5-5.1)
[2017-06-22 21:06] LABS: *BLOOD, URINE Trace-intact (NEGATIVE); *CLARITY,URINE SLIGHTLY CLOUDY (CLEAR); *COLOR,URINE DARK YELLOW (YELLOW); *KETONES,URINE 2+ (NEGATIVE); *PROTEIN,URINE 2+ (NEGATIVE); *UROBILINOGEN,URINE 0.2 E.U./dl (NORMAL); NITRITE, URINE NEGATIVE (NEGATIVE); UGLUCOSE NEGATIVE (NEGATIVE)
[2017-06-22 21:17] LABS: *BILIRUBIN,URIN NEGATIVE (NEGATIVE); LEUKOCYTE ESTERASE ,URINE 1+ (NEGATIVE)
[2017-06-22 21:18] LABS: BACTERIA,URINE FEW /HPF (NONE SEEN); MUCUS,URINE MANY /LPF (0-FEW); SQUAMOUS EPITHELIAL CELL,UR MODERATE /HPF (NONE SEEN); WBC,URINE 50-80 /HPF (0-3); YEAST,URINE MODERATE /HPF (NONE SEEN)
--- NOTE | 2017-06-22 21:29 | NUR ---
Call placed to [facility], Dr. Snowden will be paged.
--- NOTE | 2017-06-22 22:07 | NUR ---
Pt. admitted to M/S , under care of Dr. FERNANDEZ Belongs List completed. CALLED FOR BED 2208.
--- NOTE | 2017-06-22 22:18 | NUR ---
REPORT CALLED TO BOBY CARUSO.
--- NOTE | 2017-06-22 22:45 | NUR ---
PATIENT BROUGHT TO M/S VIA GURNEY BY [facility].
--- NOTE | 2017-06-23 | NUR ---
In from ER via gurney, admitted to [facility] floor Dx. Failure to Thrive. Awake but confused & verbally responsive w/ eyes closed. No SOB noted & patient denies chest pain. Initial assessment done, chaudhry catheter in place, noted cloudy concentrated yellow output. Severe redness on perineal & buttocks area noted. Perianal care provided, cleansed & applied Z-guard paste. NPO status, for EGD & PEG placement tomorrow. IVF D5 NS at 70 ml/hr started via left AC peripheral line. IV site patent, no signs of infiltrations. Vital signs WNL. Fall precaution observed, call light within reach & kept her comfortable. Will continue to monitor.
[2017-06-23 01:08] VITALS: BP 140/69
[2017-06-23 04:00] VITALS: BP 157/74
--- NOTE | 2017-06-23 05:43 | NUR ---
No significant change, kept NPO for PEG placement procedure today. No acute resp. distress.
[2017-06-23 06:52] VITALS: BP 133/76
[2017-06-23 07:00] LABS: IRON, SERUM 31 ug/dL (50-175)
--- NOTE | 2017-06-23 07:06 | NUR ---
Called "Gordo", patient's brother for procedure consent, but he did not tack picker the phone. Report given to BOBY Cadena.
[2017-06-23 07:07] LABS: BASOPHILS % (AUTO) 0.5 % (0.0-2.0); EOSINOPHILS # (AUTO) 0.1 K/uL (0.0-0.7); EOSINOPHILS % (AUTO) 1.3 % (0.0-7.0); HEMATOCRIT 34.3 % (37-47); HEMOGLOBIN 10.9 G/DL (12.0-16.0); LYMPHOCYTES # (AUTO) 2.5 K/UL (0.8-4.8); LYMPHOCYTES % (AUTO) 31.7 % (20.5-51.5); MEAN CORPUSCULAR HEMOGLOBIN 28.1 UUG (27.0-31.0); MEAN CORPUSCULAR HGB CONC 32 g/dL (32.0-37.0); MEAN CORPUSCULAR VOLUME 88.7 FL (81.0-99.0); MONOCYTES # (AUTO) 0.7 K/UL (0.1-1.30); MONOCYTES % (AUTO) 9.5 % (0.0-11.0); NEUTROPHILS # (AUTO) 4.5 K/UL (1.8-8.9); PLATELET COUNT (AUTO) 164 K/UL (150-450); RED BLOOD CELL COUNT(AUTO) 3.86 MIL/UL (4.2-5.4); WHITE BLOOD COUNT (AUTO) 7.8 K/UL (4.0-11.2)
[2017-06-23 07:10] LABS: ALKALINE PHOSPHATASE 70 U/L (50-136); ASPARTATE AMINOTRANSFERASE 11 U/L (15-37); BILIRUBIN,TOTAL 0.2 mg/dL (0.2-1.0); CARBON DIOXIDE 30 mmol/L (21-32); CHLORIDE 103 mmol/L (98-107); CREATININE 0.5 mg/dL (0.6-1.3); GLUCOSE 96 mg/dL (74-106); MAGNESIUM 1.7 mg/dL (1.8-2.4); PHOSPHOROUS 3.6 mg/dL (2.5-4.9); POTASSIUM 2.9 mmol/L (3.5-5.1); TOTAL PROTEIN, SERUM 5.9 g/dL (6.4-8.2); UREA NITROGEN, BLOOD 15 mg/dL (7-18)
--- NOTE | 2017-06-23 07:30 | NUR ---
RECIEVED PT LYING IN BED SOUND ASLEEP. APPEARS COMFORTABLE. AROUSABLE TO NAME. PT IS NPO. IVF INFUSING WELL ON HER LEFT AC D5NS AT 70ML/HR, SITE IS INTACT. G22. NO APPARENT DISTRESS NOTED.
[2017-06-23 07:31] LABS: ALANINE AMINOTRANSFERASE 9 U/L (14-59)
--- NOTE | 2017-06-23 08:30 | NUR ---
POTASSIUM 40MEQ LIQUID SUPPLEMNT GIVEN TO PT PER DR FERNANDEZ FOR K-2.9. PT TOLERATED IT WITH VERY LITTLE LIQUIDS.
--- NOTE | 2017-06-23 10:00 | NUR ---
PT EVAL DONE AT THE BEDSIDE. PT STILL WEAK TO WALK.
--- NOTE | 2017-06-23 10:30 | NUR ---
PT'S BROTHER ACROL CAME IN AND SIGNED THE CONSENT FOR EGD AND PEG. MAGNESIUM 2GMS IVPB FOR REPLACEMENTS ORDERED.
--- NOTE | 2017-06-23 10:30 | NUR ---
PT PLACE ON TELEMETRY ORDERED. SR-ST IN THE 110/MIN. NO APPARENT DISTRESS NOTED.
[2017-06-23 11:53] VITALS: BP 158/77
--- NOTE | 2017-06-23 15:11 | NUR ---
WOUND CARE CONSULT: PT PRESENTS WITH RED RASH TO PERINEUM AND BUTTOCKS, PRESENT ON ADMISSION. RECOMMENDATIONS MADE AND DISCUSSED WITH NURSING STAFF. PT ON FIRST STEP MATTRESS. ALL SKIN PROTECTION MEASURES IN PLACE. BHARATH SCORE CURRENTLY 14. PT AGITATED AT TIMES. WILL SEE PRN. IN AGREEMENT WITH PLAN OF CARE.
--- NOTE | 2017-06-23 15:30 | NUR ---
PM CARE RENDERED. PT'S PERENNEAL AREA IS VERY RED AND EXCORIATED. SEEN BY WOUND CARE NURSE WITH NEW ORDER FOR LOTRIMIN. PRE-OP CHECKLIST DONE. FIRST STEP MATTRESS APPLIED.
--- NOTE | 2017-06-23 15:45 | NUR ---
PT'S BLOOD PRESSURE IS UP TO 170SYSTOLIC SECONDARY TO PAIN
[2017-06-23 15:59] VITALS: BP 172/78
--- NOTE | 2017-06-23 16:00 | NUR ---
PT IS IN A LOT OF PAIN. MEDICATED WITH MORPHINE 2MG SLOW IVP ORDERED
--- NOTE | 2017-06-23 17:00 | NUR ---
PT TAKEN DOWN TO SURGERY VIA BED. CONDITION IS STABLE. DR STEPHENS MADE AWARE THAT PT'S TOTAL URINE OUTPUT IS 50ML FOR 10 HRS. NO ORDERS MADE.
--- NOTE | 2017-06-23 19:15 | NUR ---
Back from RR via bed. Still drowsy, but easily arousable. Denies pain at this time. GT intact and patent, with abdominal binder inplaced. Lactated Ringer infusing at 70 cc/hour. Continue to monitor.
[2017-06-23 20:00] VITALS: BP 162/79
[2017-06-24] VITALS: BP 156/90
--- NOTE | 2017-06-24 02:38 | NUR ---
Medicated for abdominal pain, will monitor.
--- NOTE | 2017-06-24 03:40 | NUR ---
Sleeping at this time. No s/s of pain/discomforts noted at this time.
[2017-06-24 04:00] VITALS: BP 158/84
--- NOTE | 2017-06-24 06:25 | NUR ---
No further complaint presented. Slept good. All needs attended and met. No significant event reported all night. Continue current plan of care.
[2017-06-24 06:33] LABS: ALANINE AMINOTRANSFERASE 10 U/L (14-59); ALKALINE PHOSPHATASE 67 U/L (50-136); ASPARTATE AMINOTRANSFERASE 14 U/L (15-37); BILIRUBIN,TOTAL 0.4 mg/dL (0.2-1.0); CARBON DIOXIDE 28 mmol/L (21-32); CHLORIDE 101 mmol/L (98-107); CREATININE 0.5 mg/dL (0.6-1.3); GLUCOSE 115 mg/dL (74-106); MAGNESIUM 1.7 mg/dL (1.8-2.4); PHOSPHOROUS 2.9 mg/dL (2.5-4.9); POTASSIUM 3.4 mmol/L (3.5-5.1); UREA NITROGEN, BLOOD 7 mg/dL (7-18)
[2017-06-24 06:37] LABS: EOSINOPHILS # (AUTO) 0.1 K/uL (0.0-0.7); EOSINOPHILS % (AUTO) 0.6 % (0.0-7.0); HEMATOCRIT 34.7 % (37-47); HEMOGLOBIN 11.4 G/DL (12.0-16.0); LYMPHOCYTES % (AUTO) 17.2 % (20.5-51.5); MEAN CORPUSCULAR HGB CONC 33 g/dL (32.0-37.0); MEAN CORPUSCULAR VOLUME 88.7 FL (81.0-99.0); MONOCYTES # (AUTO) 0.4 K/UL (0.1-1.30); MONOCYTES % (AUTO) 3.6 % (0.0-11.0); NEUTROPHILS # (AUTO) 9.1 K/UL (1.8-8.9); NEUTROPHILS % (AUTO) 78.6 % (38.5-71.5); PLATELET COUNT (AUTO) 190 K/UL (150-450); RED BLOOD CELL COUNT(AUTO) 3.91 MIL/UL (4.2-5.4)
[2017-06-24 06:48] LABS: WHITE BLOOD COUNT (AUTO) 11.6 K/UL (4.0-11.2)
--- NOTE | 2017-06-24 08:00 | NUR ---
THE ASSISGNED WASTE TRANSPORTATION TECHNICIAN ATTEMPTED TO BATH PATIENT AND AT LEAST WASH HER HAIR BUT SHE REFUSED I ATTEMPTED TO EXPLAIN TO HER THAT SHE SHOULD AT LEAST ALLOW THE WASTE TRANSPORTATION TECHNICIAN TO GIVE HER A PARTIAL BATH BUT SHE REFUSED.PATIENTS RIGHT TO REFUSE RESPECTED.
--- NOTE | 2017-06-24 08:32 | NUR ---
PATIENT IS MOANING WHEN ASKED WHAT WAS WRONG STATED THAT SHE WAS HAVING PAIN IN HER ABDOMEN SO MORPHINE GIVEN TO THE PATIENT ORDERED TURNED AND REPOSITIONED AND WILL OBSERVE.
[2017-06-24 12:00] VITALS: BP 149/82
--- NOTE | 2017-06-24 13:59 | NUR ---
SPOKE WITH CREDIT REVIEW OFFICER RE TUBE FEEDING RECOMMENDED AND NOTIFIED AND OKAYED.
--- NOTE | 2017-06-24 14:38 | NUR ---
MAGNESSIUM LEVEL IS 1.7 WITH NEW ORDERS FOR REPLACEMENTS AND NOTED
[2017-06-24 16:00] VITALS: BP_SYST 105; BP_SYST 109; BP_DIAS 47; BP_DIAS 86
--- NOTE | 2017-06-24 17:43 | NUR ---
CONTINUE TO HAVE PAIN IN HER ABDOMEN S/P GT INSERTION MEDICATED WITH MORPHINE ORDERED AND HELPFUL.GT FEEDINGD REMAIN IN PROGRESS ORDERED WITH NO REGURGITATION OR EMESIS AT THIS TIME.
--- NOTE | 2017-06-24 19:00 | NUR ---
Awake, in bed when received. Denies any pain/discomforts at this time. GT feeding at 10 cc/hour via Enteral pump, no gastric residual noted. Abdominal binder in placed. Continues IVF as ordered. Continue care as planned.
[2017-06-24 20:05] VITALS: BP 143/72
[2017-06-25] VITALS: BP 132/70
[2017-06-25 04:00] VITALS: BP 144/70
--- NOTE | 2017-06-25 05:32 | NUR ---
Remain afebrile. Slept well. No complaint presented all night. No s/s of adverse reaction noted from antibiotics. IVF continues as ordered. All needs attended and met. Continue care as planned.
[2017-06-25 07:23] LABS: ALANINE AMINOTRANSFERASE 10 U/L (14-59); ALKALINE PHOSPHATASE 63 U/L (50-136); ASPARTATE AMINOTRANSFERASE 13 U/L (15-37); BILIRUBIN,TOTAL 0.2 mg/dL (0.2-1.0); CARBON DIOXIDE 27 mmol/L (21-32); CHLORIDE 101 mmol/L (98-107); CREATININE 0.4 mg/dL (0.6-1.3); GLUCOSE 125 mg/dL (74-106); MAGNESIUM 1.9 mg/dL (1.8-2.4); PHOSPHOROUS 3.1 mg/dL (2.5-4.9); POTASSIUM 3.3 mmol/L (3.5-5.1); TOTAL PROTEIN, SERUM 5.9 g/dL (6.4-8.2); UREA NITROGEN, BLOOD 4 mg/dL (7-18)
[2017-06-25 07:34] LABS: BASOPHILS # (AUTO) 0.1 K/uL (0.0-8.0); BASOPHILS % (AUTO) 0.8 % (0.0-2.0); EOSINOPHILS # (AUTO) 0.2 K/uL (0.0-0.7); EOSINOPHILS % (AUTO) 1.8 % (0.0-7.0); HEMATOCRIT 33.5 % (37-47); HEMOGLOBIN 11.1 G/DL (12.0-16.0); LYMPHOCYTES # (AUTO) 1.7 K/UL (0.8-4.8); LYMPHOCYTES % (AUTO) 16.1 % (20.5-51.5); MEAN CORPUSCULAR HEMOGLOBIN 29.1 UUG (27.0-31.0); MEAN CORPUSCULAR HGB CONC 33 g/dL (32.0-37.0); MEAN CORPUSCULAR VOLUME 87.4 FL (81.0-99.0); MONOCYTES # (AUTO) 0.4 K/UL (0.1-1.30); MONOCYTES % (AUTO) 3.5 % (0.0-11.0); NEUTROPHILS # (AUTO) 8.4 K/UL (1.8-8.9); NEUTROPHILS % (AUTO) 77.8 % (38.5-71.5); PLATELET COUNT (AUTO) 200 K/UL (150-450); RED BLOOD CELL COUNT(AUTO) 3.83 MIL/UL (4.2-5.4); WHITE BLOOD COUNT (AUTO) 10.8 K/UL (4.0-11.2)
--- NOTE | 2017-06-25 11:22 | NUR ---
NEW ORDER TO INCREASE THE DT FEEDING RATE TO 30 ML/HR RECEIVED FROM DR FERNANDEZ AND CARRIED OUT.
[2017-06-25 12:00] VITALS: BP 169/66
--- NOTE | 2017-06-25 13:32 | NUR ---
BLOOD PRESSURE IS 171/71 ABOUT AN HOUR AGO PATIENT WAS MEDICATED WITH MORPHINE FOR PAIN AND THEN BLOOD PRESSURE RECHECKED AND ITS 169/[address]ERNANDEZ NOTIFIED WITH NO NEW ORDERS AT THIS TIME.
[2017-06-25 15:57] VITALS: BP 165/74
--- NOTE | 2017-06-25 17:30 | NUR ---
CONTINUE TO FACIAL GRIMACE AND CRY MEDICATED WITH MORPHINE ORDERED CONTINUE GT FEEDINGS AT 30 ML/HR ORDERED AND TOLERATING WELL WITH NO REGURGITATION OR EMESIS AT THIS TIME.FLUSHES ORDERED.
[2017-06-25 20:00] VITALS: BP 156/80
[2017-06-26 00:30] VITALS: BP 177/88
--- NOTE | 2017-06-26 01:00 | NUR ---
PATIENT IS ALERT AND ORIENTED X3 CONFUSE GETS AGITATED AT TIMES. ON NUTREN AT 30 ML/HR VIA G TUBE NO RESIDUALS. PAIN 8/10 GIVEN IV MORPHINE ORDERED AND STARTED NORCO ORDERED. BP IS HIGH AT 180/90 GIVEN NEW ORDER MEDS METOPROLOL BUT STILL HIGH 177/88 GIVEN PRN VASOTEC ORDERED, NOTED TO DR. STEPHENS. MAINTAINED ON TELEMETRY. SR HR AT 70-80. STOPPED FLUIDS ORDERED. RICKETTS IN PLACED DRAINING CLEAR YELLOW URINE. OTHERWISE PATIENT IS SLEEPING AT THIS TIME. CALL LIGHT WITHIN REACH. KEPT MONITORED.
[2017-06-26 01:25] VITALS: BP 157/85
--- NOTE | 2017-06-26 02:21 | NUR ---
BP WENT DOWN TO 157/85, WILL CONT TO MONITOR.
[2017-06-26 04:00] VITALS: BP 150/95
--- NOTE | 2017-06-26 06:12 | NUR ---
PATIENT SLEPT NOT UNTIL LATE THIS MORNING. BP STILL STABLE AT 150 SYSTOLIC. CLEANED AND DRY PERIANAL AREA, BARRIER CREAM APPLIED. PATIENT IS STILL CONFUSE, REORIENTED TO REALITY. OTHERWISE NO RESPIRATORY DISTRESS OR OTHER PROBLEMS NOTED.
[2017-06-26 06:47] LABS: ALANINE AMINOTRANSFERASE 8 U/L (14-59); ALKALINE PHOSPHATASE 69 U/L (50-136); ASPARTATE AMINOTRANSFERASE 13 U/L (15-37); BILIRUBIN,TOTAL 0.2 mg/dL (0.2-1.0); CARBON DIOXIDE 31 mmol/L (21-32); CHLORIDE 99 mmol/L (98-107); CREATININE 0.5 mg/dL (0.6-1.3); GLUCOSE 100 mg/dL (74-106); MAGNESIUM 1.7 mg/dL (1.8-2.4); PHOSPHOROUS 3.9 mg/dL (2.5-4.9); POTASSIUM 4.1 mmol/L (3.5-5.1); TOTAL PROTEIN, SERUM 6.8 g/dL (6.4-8.2); UREA NITROGEN, BLOOD 5 mg/dL (7-18)
[2017-06-26 08:21] LABS: HEMATOCRIT 37.7 % (37-47); MEAN CORPUSCULAR HEMOGLOBIN 29.1 UUG (27.0-31.0); MEAN CORPUSCULAR HGB CONC 32 g/dL (32.0-37.0); MEAN CORPUSCULAR VOLUME 91.5 FL (81.0-99.0); RED BLOOD CELL COUNT(AUTO) 4.13 MIL/UL (4.2-5.4); WHITE BLOOD COUNT (AUTO) 11.9 K/UL (4.0-11.2)
[2017-06-26 08:22] LABS: BASOPHILS # (AUTO) 0.1 K/uL (0.0-8.0); BASOPHILS % (AUTO) 0.4 % (0.0-2.0); EOSINOPHILS # (AUTO) 0.1 K/uL (0.0-0.7); EOSINOPHILS % (AUTO) 0.7 % (0.0-7.0); LYMPHOCYTES # (AUTO) 3.1 K/UL (0.8-4.8); LYMPHOCYTES % (AUTO) 25.6 % (20.5-51.5); MONOCYTES # (AUTO) 0.7 K/UL (0.1-1.30); MONOCYTES % (AUTO) 6.2 % (0.0-11.0); NEUTROPHILS % (AUTO) 67.1 % (38.5-71.5); PLATELET COUNT (AUTO) 274 K/UL (150-450)
--- NOTE | 2017-06-26 09:00 | NUR ---
ALERT TO SELF REMAIN ON IV ATB ORDERED WITH NO ADVERSE OR ALLERGIC REACTIONS AT THIS TIME.TOLERATING GT ORDERED WITH NO EMESIS OR REGURGITATION AT THIS TIME.TX CONTINUES TO RASHES ON LOPEZ AND MARIA BUTTOCKS WITH REDNESS RICKETTS CATH REMAINS INTACT WITH YELLOW URINE MADE COMFORTABLE.
[2017-06-26 11:41] VITALS: BP 158/84
--- NOTE | 2017-06-26 12:33 | NUR ---
NEW ORDER NOTED TO DISCHARGE PATIENT BACK TO [facility] TODAY.FAMILY AWARE.
[2017-06-26] MEDS ORDERED: ATOR10TA GT (12:52)
[2017-06-26] MEDS ORDERED: CLON0.5T4 PO (12:52)
[2017-06-26] MEDS ORDERED: ACID1TAB4 GT (12:52)
[2017-06-26] MEDS ORDERED: MULT1TAB73 GT (12:52)
[2017-06-26] MEDS ORDERED: FLUC100T GT (12:52)
[2017-06-26] MEDS ORDERED: ASPI81TA31 GT (12:52)
[2017-06-26] MEDS ORDERED: BUPR150T10 GT (12:52)
[2017-06-26] MEDS ORDERED: HYDR-3326 GT (12:52)
[2017-06-26] MEDS ORDERED: FAMO20TA8 GT (12:52)
[2017-06-26] MEDS ORDERED: Magnesium Oxide GT (12:52)
[2017-06-26] MEDS ORDERED: DOCU-141 GT (12:52)
[2017-06-26] MEDS ORDERED: NUTR250L61 GT (12:52)
[2017-06-26] MEDS ORDERED: MENT71OI TOP (12:52)
[2017-06-26] MEDS ORDERED: GABA-534 GT (12:52)
[2017-06-26] MEDS ORDERED: ACET-2154 PO (12:52)
[2017-06-26] MEDS ORDERED: CLOT15CR36 TOP (12:52)
[2017-06-26] MEDS ORDERED: ALBU2.5V13 NEB (12:52)
[2017-06-26] MEDS ORDERED: CARB1TAB21 GT (12:52)
[2017-06-26] MEDS ORDERED: MIRT15TA7 GT (12:52)
[2017-06-26] MEDS ORDERED: CEFT1VIA15 IV (12:52)
[2017-06-26] MEDS ORDERED: METO25TA6 GT (12:52)
[2017-06-26] MEDS ORDERED: RIVA1.5C7 GT (12:52)
[2017-06-26 15:56] VITALS: BP 118/75
--- NOTE | 2017-06-26 17:30 | NUR ---
[facility] HERE TO TAKE PATIENT AND THEY STATED THAT THE RESP WAS 38 AND THAT PATIENT WAS BREATHING SHALLOW AND SAT WAS 88%.CHECKED PATIENT AND COUNTED THE RESP AND IT WAS 24 AND SAT IS 91-93 PATIENT IS HAS COPD AND DENIES PAIN AT THIS TIME AND RESPIRATION IS SOMEWHAT FASTER THAN NORMAL FOR HER BUT WAS NOT LABORED SO O2 STARTED AND WILL OBSERVE.
--- NOTE | 2017-06-26 17:49 | NUR ---
THE MED RESPONSE STATED THAT THEY CALLED [facility] AND STATED THAT [facility] WILL NOT ACCEPT THE PATIENT WITH HIGH RESPIRATION SO PATIENT MEDICATED WITH MORPHINE AND WILL OBSERVE.
--- NOTE | 2017-06-26 18:45 | NUR ---
PATIENT DISCHARGED PICKED UP BY MED [facility] TO [facility] WITH DISCHARGE INSTRUCTIONS AND ALL HER PERSONAL BELONGINGS PATIENT REMAINS CONFUSED AND DISORIENTED WITH GT INTACT AT THIS TIME.
== END 2017-06-26 18:45 | DRG 757 ==
LOC: ER 19:47 → MED 22:31 → TELE 06-23 12:00
PROVIDERS: ADMIT Internal Medicine; ATTEND Internal Medicine
PROC: 0DH63UZ Insertion of Feeding Device into Stomach, Percutaneous Approach (ICD-10-PCS; principal; 2017-06-23 18:00)
DX: B37.49 Other urogenital candidiasis (principal); E43 Unspecified severe protein-calorie malnutrition; J18.9 Pneumonia, unspecified organism; I50.33 Acute on chronic diastolic (congestive) heart failure; D68.59 Other primary thrombophilia; G20 Parkinson's disease; R13.10 Dysphagia, unspecified; I11.0 Hypertensive heart disease with heart failure; J44.0 Chronic obstructive pulmonary disease with (acute) lower respiratory infection; F01.50 Vascular dementia, unspecified severity, without behavioral disturbance, psychotic disturbance, mood disturbance, and anxiety; E83.42 Hypomagnesemia; Z68.1 Body mass index [BMI] 19.9 or less, adult; D64.9 Anemia, unspecified; R62.7 Adult failure to thrive; G89.29 Other chronic pain; I25.10 Atherosclerotic heart disease of native coronary artery without angina pectoris; K21.9 Gastro-esophageal reflux disease without esophagitis; N39.0 Urinary tract infection, site not specified; Z86.73 Personal history of transient ischemic attack (TIA), and cerebral infarction without residual deficits; Z87.891 Personal history of nicotine dependence; F32.9 Major depressive disorder, single episode, unspecified; M19.90 Unspecified osteoarthritis, unspecified site; E78.5 Hyperlipidemia, unspecified; E87.6 Hypokalemia; D72.829 Elevated white blood cell count, unspecified; F41.9 Anxiety disorder, unspecified; K58.9 Irritable bowel syndrome, unspecified
CPT/HCPCS: 36415; 43235; 70030-TC; 71010; 83550; 83605; 83735; 84100; 85025; 85730; 87040; 87086; 93005; 97110; A4217; A4663; J0690; J0696; J1450; J2270; J3475; J3490; J7042; J7050; J7060; J7120